=== PATIENT | male | born 2000 | race Caucasian/White ===

== ENCOUNTER 2021-09-30 08:44 | Emergency (ER) | payer OTHER ==
[2021-09-30 09:29] LABS: MONO NEGATIVE CONTROL ZONE White (Negative) (White); MONO POSITIVE CONTROL Pink Line (Positive) (PINK/RED); Mononucleosis NEGATIVE (NEGATIVE)
[2021-09-30 10:02] LABS: #Monocytes 2.8 thou/uL (0.11-0.59); #Neutrophils 15.6 thou/uL (1.40-6.50); %Basophils 0.2 % (0.0-1.0); %Eosinophils 0.1 % (0.0-10.0); %Lymphocytes 5.3 % (28.0-48.0); %Monocytes 14.5 % (0.0-4.0); %Neutrophils 79.9 % (31.0-61.0); Hemoglobin 15.3 g/dL (14.0-18.0); Mean Corpuscular HGB CONC 33.2 g/dL (32.0-36.0); Mean Corpuscular Volume 90.6 fL (78.0-98.0); Mean Platelet Volume 6.6 fL (7.4-10.4); Platelet Count 358 thou/uL (130-400); RBC Distribution Width 11.6 % (11.5-14.5); White Blood Cell (WBC) Count 19.6 thou/uL (4.8-10.8)
[2021-09-30 10:08] LABS: ALT (SGPT) 20 U/L (8-55); AST (SGOT) 19 U/L (5-34); Albumin 4.3 g/dL (3.5-5.0); Alkaline Phosphatase 113 U/L (50-130); Anion Gap 15 mmol/L (10-20); BUN (Urea Nitrogen) 14 mg/dL (8.9-20.6); Bilirubin, Total 0.9 mg/dL (0.2-1.2); Calc. Creatinine Clearance 0 mL/min (70-130); Calcium 9.9 mg/dL (7.8-10.44); Carbon Dioxide 27 mmol/L (22-29); Chloride 98 mmol/L (98-107); Globulin 3.9 g/dL (2.4-3.5); Glucose 110 mg/dL (70-105); Potassium 3.5 mmol/L (3.5-5.1); Protein, Total 8.2 g/dL (6.0-8.3); Sodium 136 mmol/L (136-145)
[2021-09-30] MEDS ORDERED: Ampicillin/Sulbactam 3 GM in Sodium Chloride 0.9% 100 ML IVPB SCH (13:00)
[2021-09-30] MEDS ORDERED: Xylocaine 1% w/ Epi 1:100K 10 ML VIAL ONE (13:01)
[2021-09-30] MEDS ORDERED: Benzocaine 20% Spray 60 ML CAN ONE (13:01)
[2021-09-30] MEDS ORDERED: Ondansetron ODT 4 MG TAB ONE (14:03)
== END 2021-09-30 14:40 | disposition home or self-care (01) ==
LOC: ERS 08:44
DX: K65.1 Peritoneal abscess (principal); R13.10 Dysphagia, unspecified
CPT/HCPCS: 36415; 42700; 70491; 80053; 85025; 86308; 87070; 96365; J0295; J3490; Q0162

== ENCOUNTER 2023-04-08 16:07 | Emergency (ER) | payer BC, MEDICAID, OTHER ==
[2023-04-08] MEDS ORDERED: Amoxicillin/Potassium Clav 875 MG TAB ONE (16:50)
[2023-04-08] MEDS ORDERED: predniSONE 20 MG TAB ONE (16:50)
== END 2023-04-08 16:53 | disposition home or self-care (01) ==
LOC: ERS 16:07
DX: J03.90 Acute tonsillitis, unspecified (principal)
CPT/HCPCS: 99283; J7512